=== PATIENT | female | born 1970 | race Two or more races ===

== ENCOUNTER 2017-10-08 23:11 | Emergency (ER) | payer SELFPAY ==
[2017-10-08 23:49] LABS: ADD MAN DIFF? NO; BASO % 0 % (0-3); EOS # 0.2 x10^3/uL (0.0-0.7); EOS % 2 % (0-3); HEMATOCRIT 41.6 % (36.0-47.0); HEMOGLOBIN 13.9 g/dL (12.0-15.5); LYMPH # 3.4 x10^3/uL (1.0-4.8); LYMPH % 35 % (24-48); MEAN CORPUSCULAR HEMOGLOBIN 30 pg (25-35); MEAN CORPUSCULAR HGB CONC 33 g/dL (31-37); MEAN CORPUSCULAR VOLUME 89 fL (79-100); MONO # 0.6 x10^3/uL (0.0-1.1); MONO % 6 % (0-9); NEUT # 5.7 x10^3uL (1.8-7.7); NEUT % 58 % (31-73); PLATELET COUNT 248 x10^3/uL (140-400); RED BLOOD COUNT 4.69 x10^6/uL (3.50-5.40); RED CELL DISTRIBUTION WIDTH 13.6 % (11.5-14.5); WHITE BLOOD COUNT 9.8 x10^3/uL (4.0-11.0)
[2017-10-09 00:02] LABS: D-DIMER 0.37 ug/mlFEU (0.00-0.50)
[2017-10-09 00:08] LABS: ANION GAP 10 (6-14); BLOOD UREA NITROGEN 13 mg/dL (7-20); BUN/CREATININE RATIO 19 (6-20); CALCIUM 9.4 mg/dL (8.5-10.1); CARBON DIOXIDE 28 mmol/L (21-32); CHLORIDE 106 mmol/L (98-107); CREATININE 0.7 mg/dL (0.6-1.0); GFR 90.1; GLUCOSE 121 mg/dL (70-99); POTASSIUM 3.3 mmol/L (3.5-5.1); SODIUM 144 mmol/L (136-145)
[2017-10-09 00:13] LABS: TROPONINI < 0.017 ng/mL (0.000-0.055)
[2017-10-09 00:15] LABS: ALBUMIN 3.7 g/dL (3.4-5.0); ALBUMIN/GLOBULIN RATIO 0.9 (1.0-1.7); ALK PHOS 96 U/L (46-116); ALT (SGPT) 22 U/L (14-59); AST (SGOT) 17 U/L (15-37); LIPASE 105 U/L (73-393); TOTAL BILIRUBIN 0.3 mg/dL (0.2-1.0)
[2017-10-09 00:18] LABS: CKMB INDEX 0.5 % (0-4); CKMB MASS 0.5 ng/mL (0.0-3.6); CREATINE KINASE 111 U/L (26-192)
[2017-10-09 00:18] LABS: NT-PRO BNP 45 pg/mL (0-124)
[2017-10-09] MEDS: fentaNYL PF VIAL 100 MCG/2 ML VIAL IV (01:23)
[2017-10-09] MEDS: PANTOPRAZOLE 40 MG TABLET.DR. PO (01:23)
== END 2017-10-09 01:48 | disposition home or self-care (01) ==
LOC: ER 10-09 01:48
DX: R07.89 Other chest pain (principal); R05 Cough; J45.909 Unspecified asthma, uncomplicated; F17.210 Nicotine dependence, cigarettes, uncomplicated; Z90.49 Acquired absence of other specified parts of digestive tract; Z90.710 Acquired absence of both cervix and uterus
CPT/HCPCS: 36415; 71045; 80053; 82553; 83690; 83880; 84484; 85025; 85379; 93005; 96374; 99285-25; J3010